=== PATIENT | male | born 1985 | race American Indian/Alaskan Native ===

== ENCOUNTER 2017-07-30 05:17 | Emergency (ER) | payer OTHER ==
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
[~2017-07-30 05:17] MED LIST: HYDROmorphone 1 MG/ML Syringe IVPUSH ONE; LORazepam 2 MG/ML Syringe IVPUSH ONE; Sodium Chloride 0.9% 1,000 ML IV ONE
[2017-07-30 05:46] LABS: CHLORIDE,CL 108 mmol/L (101-111); SODIUM,NA 140 mmol/L (135-145)
== END 2017-07-30 08:10 | disposition home or self-care (01) ==
LOC: DL.ED 05:17
DX: F10.120 Alcohol abuse with intoxication, uncomplicated (principal); F17.210 Nicotine dependence, cigarettes, uncomplicated; V89.2XXA Person injured in unspecified motor-vehicle accident, traffic, initial encounter
CPT/HCPCS: 36415; 70450; 72125; 72131; 80053; 80305; 81001; 85025; 96361; 96374; 96375; 99285; G0480; J1170; J2060; J7030

== ENCOUNTER 2020-08-06 18:45 | Emergency (ER) | payer OTHER ==
[2020-08-06 18:48] VITALS: BP 108/52; PULSE 72
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
[2020-08-06] MEDS ORDERED: diphenhydrAMINE 50 MG/ML SDV ONE (19:07)
[2020-08-06] MEDS ORDERED: LORazepam 2 MG/ML SDV ONE (19:08)
[2020-08-06] MEDS ORDERED: diphenhydrAMINE 50 MG/ML SDV IM PRN (19:12)
[2020-08-06] MEDS ORDERED: LORazepam 2 MG/ML SDV IM PRN (19:12)
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
== END 2020-08-06 19:50 ==
LOC: DL.ED 18:45
DX: S00.212A Abrasion of left eyelid and periocular area, initial encounter (principal); F10.120 Alcohol abuse with intoxication, uncomplicated; R22.0 Localized swelling, mass and lump, head
CPT/HCPCS: 70450; 70486; 72125; 80305-QW; 81003; 99283; 99284-25

== ENCOUNTER 2020-08-07 08:27 | Emergency (ER) | payer OTHER ==
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
[2020-08-07 08:50] VITALS: BP 115/62; PULSE 85
[2020-08-07 09:13] LABS: CHLORIDE,CL 106 mmol/L (98-107); SODIUM,NA 141 mmol/L (136-145)
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
== END 2020-08-07 10:53 ==
LOC: DL.ED 08:27
DX: U07.1 COVID-19 (principal); F17.210 Nicotine dependence, cigarettes, uncomplicated
CPT/HCPCS: 36415; 71250; 80053; 84484; 85025; 93005; 99285-25; U0002

== ENCOUNTER 2020-09-24 03:34 | Emergency (ER) | payer MEDICAID, OTHER ==
[2020-09-24] MEDS ORDERED: LORazepam 2 MG/ML SDV IVPUSH ONE (03:48)
[2020-09-24] MEDS ORDERED: Aspirin 81 MG Tab.Chew PO ONE (03:48)
[2020-09-24] MEDS ORDERED: Famotidine 20 MG/2 ML SDV IVPUSH ONE (03:49)
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
[2020-09-24 04:12] LABS: AMPHETAMINES,URINE NEGATIVE (NEGATIVE); BARBITURATES,URINE NEGATIVE (NEGATIVE); BENZODIAZEPINE,URINE NEGATIVE (NEGATIVE); MDMA (ECSTASY), URINE NEGATIVE (NEGATIVE); METHADONE,URINE NEGATIVE (NEGATIVE); METHAMPHETAMINES,URINE NEGATIVE (NEGATIVE); OPIATES,URINE NEGATIVE (NEGATIVE); OXYCODONE,URINE NEGATIVE (NEGATIVE); PHENCYCLIDINE,URINE NEGATIVE (NEGATIVE); TCA,URINE NEGATIVE (NEGATIVE)
[2020-09-24 04:19] LABS: ANION GAP 14.7 mEq/L (7-13); CHLORIDE,CL 105 mmol/L (98-107); SODIUM,NA 140 mmol/L (136-145)
--- NOTE | 2020-09-24 05:22 | CR ---
PROCEDURE INFORMATION: Exam: XR Chest, 1 View Exam date and time: 09/24/2020 4:56 AM Age: 35 years old Clinical indication: Other: Chest pain TECHNIQUE: Imaging protocol: XR of the chest Views: 1 view. COMPARISON: CT Chest wo Cont 08/07/2020 10:01 AM FINDINGS: Lungs: Unremarkable. No consolidation. Pleural space: Unremarkable. No pleural effusion. No pneumothorax. Heart/Mediastinum: Unremarkable. No cardiomegaly. Bones/joints: Unremarkable. IMPRESSION: No acute findings.
[2020-09-24 05:36] VITALS: BP 109/56; PULSE 67
== END 2020-09-24 05:41 | disposition home or self-care (01) ==
LOC: DL.ED 03:34
DX: F41.9 Anxiety disorder, unspecified (principal); R07.89 Other chest pain; R10.9 Unspecified abdominal pain
CPT/HCPCS: 36415; 71045; 80053; 80305-QW; 81003; 82150; 83605; 83690; 84484; 85025; 85379; 85610; 93005; 96374; 96375; 99283; 99285-25; A9270-GY; J2060; J3490

== ENCOUNTER 2021-04-18 19:07 | Emergency (ER) | payer MEDICAID ==
[2021-04-18 20:04] VITALS: BP 112/60; PULSE 98
[2021-04-18] MEDS: Lidocaine 1% 30 ML SDV INJECT ONE (21:11)
[2021-04-18] MEDS: Bacitracin Oint 1 GM U/D Packet TOP ONE (21:12)
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
== END 2021-04-18 21:33 | disposition home or self-care (01) ==
LOC: DL.ED 19:07
DX: S61.111A Laceration without foreign body of right thumb with damage to nail, initial encounter (principal); Z72.0 Tobacco use; W26.8XXA Contact with other sharp object(s), not elsewhere classified, initial encounter
CPT/HCPCS: 12001; 99282-25

== ENCOUNTER 2025-02-06 22:23 | Emergency (ER) | payer MEDICAID, OTHER | END 2025-02-06 23:08 | LOC: DL.ED 22:23 | DX: F10.930 Alcohol use, unspecified with withdrawal, uncomplicated (principal); R68.84 Jaw pain; Y04.0XXA Assault by unarmed brawl or fight, initial encounter | CPT/HCPCS: 99284 ==